=== PATIENT | male | born 1965 | race African-American/Black ===

== ENCOUNTER 2019-11-07 07:54 | Emergency (ER) | payer MEDICAID ==
[~2019-11-07] VITALS: Ht 185.4 cm; Wt 150.0 kg
[2019-11-07 09:30] VITALS: BP 158/98
== END 2019-11-07 09:36 | disposition home or self-care (01) ==
LOC: ER 07:54
DX: T37.8X5A Adverse effect of other specified systemic anti-infectives and antiparasitics, initial encounter (principal); X58.XXXA Exposure to other specified factors, initial encounter; E11.9 Type 2 diabetes mellitus without complications; E78.00 Pure hypercholesterolemia, unspecified; I10 Essential (primary) hypertension; Z88.6 Allergy status to analgesic agent
CPT/HCPCS: 99283